=== PATIENT | male | born 1960 | race Two or more races ===

== ENCOUNTER 2018-12-22 20:22 | Inpatient (IN) | payer BC, MEDICAID ==
[~2018-12-22] VITALS: Ht 182.9 cm; Wt 73.2 kg
[2018-12-22] MEDS ORDERED: ALBUTEROL (0.083%) 2.5MG/3ML NEB HHN STA (21:17)
[2018-12-22 22:12] LABS: BASOPHILS % 1.3 % (0.0-2.0); CHLORIDE 102 mEq/L (98-107); EOSINOPHILS % 0.9 % (0.0-5.0); HEMATOCRIT. 46.3 % (42.0-52.0); HEMOGLOBIN. 14.5 g/dL (14.0-18.0); LYMPHOCYTES % 21.8 % (20.0-50.0); MEAN CORPUSCULAR HEMOGLOBIN 24.2 pg (28.0-32.0); MEAN CORPUSCULAR VOLUME 77.1 fL (80.0-94.0); MEAN PLATELET VOLUME 7.9 fl (7.4-10.4); MONOCYTES % 13.6 % (2.0-8.0); NEUTROPHILS % 62.4 % (40.0-76.0); PLATELET 346 x1000/uL (130-400)
[2018-12-22 22:16] LABS: ETHANOL BLOOD < 10 mg/dL; INR 1.5; PARTIAL THROMBOPLASTIN TIME 30.3 sec (23.4-31.0); PROTHROMBIN TIME 15.4 sec (9.1-11.1)
[2018-12-22] MEDS ORDERED: SODIUM CHLORIDE 0.9% 1,000 ML IV ONE (22:35)
[2018-12-22] MEDS ORDERED: HYDROCODONE/ACETAMINOPHEN 5/325MG TABLET PO ONE (22:45)
[2018-12-22 22:55] LABS: CHLORIDE 102 mEq/L (98-107)
[2018-12-22 23:00] LABS: PLATELET ESTIMATE NORMAL
[2018-12-23 00:38] LABS: CLARITY URINE CLEAR (CLEAR); COLOR URINE YELLOW (YELLOW); KETONES URINE NEGATIVE (NEGATIVE); LEUKOCYTE ESTERASE URINE NEGATIVE (NEGATIVE); NITRITE URINE NEGATIVE (NEGATIVE); OCCULT BLOOD URINE NEGATIVE (NEGATIVE); PROTEIN URINE NEGATIVE (NEGATIVE)
[2018-12-23 00:53] LABS: *BARBITURATES SCREEN URINE NEGATIVE (NEGATIVE); *BENZODIAZEPINES SCREEN URINE NEGATIVE (NEGATIVE); *COCAINE SCREEN URINE NEGATIVE (NEGATIVE)
[2018-12-23 00:54] LABS: *AMPHETAMINES SCREEN URINE PRESUMTIVE POSITIVE (NEGATIVE); METHADONE URINE SCREEN NEGATIVE (NEGATIVE); OPIATES URINE SCREEN NEGATIVE (NEGATIVE); PHENCYCLIDINE URINE SCREEN NEGATIVE (NEGATIVE)
[2018-12-23 00:55] LABS: CANNABINOID URINE SCREEN NEGATIVE (NEGATIVE)
[2018-12-23] MEDS ORDERED: IOHEXOL-350 100 ML BOTTLE ONE (04:19)
[2018-12-23] MEDS ORDERED: ONDANSETRON HCL 4MG/2ML INJ IV PRN (08:15)
[2018-12-23] MEDS ORDERED: IPRATROPIUM/ALBUTEROL 0.5-3(2.5)MG/3ML NEB HHN PRN (08:15)
[2018-12-23] MEDS ORDERED: ACETAMINOPHEN 325MG TABLET PO PRN (08:15)
[2018-12-23 10:00] VITALS: BP 112/77
[2018-12-23] MEDS: LOSARTAN POTASSIUM 25 MG TABLET PO SCH (11:15)
[2018-12-23] MEDS: CARVEDILOL 6.25 MG TABLET PO SCH ×2 (11:15→21:00)
[2018-12-23] MEDS: FUROSEMIDE 100MG/10ML VIAL IVP SCH ×2 (11:16→17:09)
[2018-12-23] MEDS: ENOXAPARIN 40MG/0.4ML SYR SUBCUT SCH (11:17)
[2018-12-23 11:28] VITALS: BP 112/77
[2018-12-23 12:00] VITALS: BP 133/89
[2018-12-23] MEDS: HYDROCODONE/ACETAMINOPHEN 5/325MG TABLET PO PRN (12:35)
[2018-12-23] MEDS ORDERED: PNEUMOCOCCAL 23-VAL P-SAC VAC 0.5 ML IM ONE (15:00)
[2018-12-23 16:00] VITALS: BP 96/60
[2018-12-23 20:00] VITALS: BP 109/71
[2018-12-23] MEDS: MORPHINE SULFATE 4 MG/ML CPJ (NOT FOR IM USE) IV PRN (22:16)
[2018-12-23 23:59] VITALS: BP 108/83
[2018-12-24] MEDS: HYDROCODONE/ACETAMINOPHEN 5/325MG TABLET PO PRN ×2 (02:49→21:24)
[2018-12-24 04:00] VITALS: BP 120/85
[2018-12-24 06:52] LABS: CHLORIDE 101 mEq/L (98-107)
[2018-12-24 07:25] LABS: BASOPHILS % 1.6 % (0.0-2.0); EOSINOPHILS % 2.2 % (0.0-5.0); HEMATOCRIT. 47.8 % (42.0-52.0); HEMOGLOBIN. 14.8 g/dL (14.0-18.0); LYMPHOCYTES % 21.6 % (20.0-50.0); MEAN CORPUSCULAR HEMOGLOBIN 24.3 pg (28.0-32.0); MEAN CORPUSCULAR VOLUME 78.4 fL (80.0-94.0); MEAN PLATELET VOLUME 8.2 fl (7.4-10.4); MONOCYTES % 12.8 % (2.0-8.0); NEUTROPHILS % 61.8 % (40.0-76.0); PLATELET 337 x1000/uL (130-400); RED CELL DISTRIBUTION WIDTH 21.7 % (11.6-14.6)
[2018-12-24 08:00] VITALS: BP 109/90
[2018-12-24] MEDS: LOSARTAN POTASSIUM 25 MG TABLET PO SCH (08:34)
[2018-12-24] MEDS: CARVEDILOL 6.25 MG TABLET PO SCH ×2 (08:34→21:17)
[2018-12-24] MEDS: FUROSEMIDE 100MG/10ML VIAL IVP SCH ×2 (09:10→16:45)
[2018-12-24] MEDS: ENOXAPARIN 40MG/0.4ML SYR SUBCUT SCH (09:11)
[2018-12-24] MEDS: SPIRONOLACTONE 50MG TABLET PO SCH (09:11)
[2018-12-24] MEDS: MORPHINE SULFATE 4 MG/ML CPJ (NOT FOR IM USE) IV PRN (09:11)
[2018-12-24 12:28] VITALS: BP 103/75
[2018-12-24 16:00] VITALS: BP 124/78
[2018-12-24 20:11] VITALS: BP 111/81
[2018-12-25 00:37] VITALS: BP 98/67
[2018-12-25 04:00] VITALS: BP 116/86
[2018-12-25] MEDS: MORPHINE SULFATE 4 MG/ML CPJ (NOT FOR IM USE) IV PRN (07:13)
[2018-12-25 07:57] LABS: BASOPHILS % 0.7 % (0.0-2.0); EOSINOPHILS % 1.5 % (0.0-5.0); HEMATOCRIT. 46.2 % (42.0-52.0); HEMOGLOBIN. 14.5 g/dL (14.0-18.0); MEAN CORPUSCULAR HEMOGLOBIN 24.1 pg (28.0-32.0); MEAN CORPUSCULAR VOLUME 76.7 fL (80.0-94.0); MEAN PLATELET VOLUME 7.9 fl (7.4-10.4); MONOCYTES % 13.7 % (2.0-8.0); NEUTROPHILS % 71.1 % (40.0-76.0); PLATELET 331 x1000/uL (130-400); RED BLOOD CELL COUNT 6.02 mill/uL (4.7-6.1); RED CELL DISTRIBUTION WIDTH 21.5 % (11.6-14.6)
[2018-12-25 08:00] VITALS: BP 112/81
[2018-12-25] MEDS: SPIRONOLACTONE 50MG TABLET PO SCH (09:05)
[2018-12-25] MEDS: FUROSEMIDE 100MG/10ML VIAL IVP SCH ×2 (09:05→17:12)
[2018-12-25] MEDS: CARVEDILOL 6.25 MG TABLET PO SCH (09:05)
[2018-12-25] MEDS: LOSARTAN POTASSIUM 25 MG TABLET PO SCH (09:05)
[2018-12-25] MEDS: ENOXAPARIN 40MG/0.4ML SYR SUBCUT SCH (09:06)
[2018-12-25 11:20] LABS: CHLORIDE 101 mEq/L (98-107)
[2018-12-25 11:37] LABS: CREATINE KINASE 40 IU/L (39-308)
[2018-12-25 11:40] LABS: CREATINE KINASE MB FRACTION 1.7 ng/mL (0.5-3.6)
[2018-12-25 12:00] VITALS: BP 100/69
[2018-12-25] MEDS: HYDROCODONE/ACETAMINOPHEN 5/325MG TABLET PO PRN ×2 (15:32→16:17)
[2018-12-25 16:00] VITALS: BP 109/73
[2018-12-25 17:15] VITALS: BP 115/80
== END 2018-12-25 19:12 | disposition home or self-care (01) | DRG 194 ==
LOC: ER 20:22 → 6WST 12-23 00:57 → EDBEDREQTM 12-23 00:59 → EDBEDREQDT 12-23 00:59 → EDBEDREQ 12-23 00:59 → ENRESERV 12-23 08:24
PROVIDERS: ADMIT Internal Medicine; ATTEND Internal Medicine
DX: I11.0 Hypertensive heart disease with heart failure (principal); E43 Unspecified severe protein-calorie malnutrition; I27.20 Pulmonary hypertension, unspecified; I50.23 Acute on chronic systolic (congestive) heart failure; I69.351 Hemiplegia and hemiparesis following cerebral infarction affecting right dominant side; G40.909 Epilepsy, unspecified, not intractable, without status epilepticus; N40.0 Benign prostatic hyperplasia without lower urinary tract symptoms; F10.10 Alcohol abuse, uncomplicated; F15.10 Other stimulant abuse, uncomplicated; I42.0 Dilated cardiomyopathy; W18.30XA Fall on same level, unspecified, initial encounter; S93.401A Sprain of unspecified ligament of right ankle, initial encounter; Y93.89 Activity, other specified; Y92.89 Other specified places as the place of occurrence of the external cause; Y99.8 Other external cause status; Z72.0 Tobacco use; Z71.41 Alcohol abuse counseling and surveillance of alcoholic; Z71.51 Drug abuse counseling and surveillance of drug abuser; Z68.21 Body mass index [BMI] 21.0-21.9, adult
CPT/HCPCS: 36415; 71045; 71275; 73610; 73630; 73718; 80048; 80305; 82550; 82553; 83735; 83880; 84443; 84484; 85379; 90732; 93005; 93970; 94640; 96360; 96361; 97116; 97162; 99285; G0482; J1650; J1940; J2270; J7030; J7611; Q9967

== ENCOUNTER 2019-04-18 00:38 | Inpatient (IN) | payer MEDICAID ==
[~2019-04-18] VITALS: Ht 182.9 cm; Wt 77.1 kg
[2019-04-18 02:51] LABS: HEMATOCRIT. 45.2 % (42.0-52.0); HEMOGLOBIN. 14.7 g/dL (14.0-18.0); MEAN CORPUSCULAR HEMOGLOBIN 25.9 pg (28.0-32.0); MEAN CORPUSCULAR VOLUME 79.7 fL (80.0-94.0); MEAN PLATELET VOLUME 8.1 fl (7.4-10.4); PLATELET 362 x1000/uL (130-400); RED BLOOD CELL COUNT 5.67 mill/uL (4.7-6.1); RED CELL DISTRIBUTION WIDTH 18.9 % (11.6-14.6)
[2019-04-18 02:55] LABS: CHLORIDE 104 mEq/L (98-107)
[2019-04-18 03:01] LABS: CLARITY URINE CLEAR (CLEAR); COLOR URINE YELLOW (YELLOW); KETONES URINE NEGATIVE (NEGATIVE); LEUKOCYTE ESTERASE URINE NEGATIVE (NEGATIVE); NITRITE URINE NEGATIVE (NEGATIVE); OCCULT BLOOD URINE NEGATIVE (NEGATIVE); PROTEIN URINE NEGATIVE (NEGATIVE); SPECIFIC GRAVITY URINE 1.013 (1.005-1.030)
[2019-04-18] MEDS ORDERED: ASPIRIN 81MG TABLET PO NR (04:15)
[2019-04-18] MEDS ORDERED: FUROSEMIDE 40MG TABLET PO NR (04:30)
[2019-04-18 04:36] LABS: PLATELET ESTIMATE NORMAL
[2019-04-18] MEDS ORDERED: ACETAMINOPHEN 325MG TABLET PO PRN (06:00)
[2019-04-18] MEDS ORDERED: DOCUSATE SODIUM 100MG CAPSULE PO PRN (08:00)
[2019-04-18] MEDS ORDERED: ONDANSETRON HCL 4MG/2ML INJ IV PRN (08:00)
[2019-04-18] MEDS ORDERED: MAGNESIUM/ALUMINUM HYDROXIDE/SIMETHICONE 30ML UDC PO PRN (08:00)
[2019-04-18] MEDS ORDERED: NA PHOS,M-B/NA PHOS,DI-BA ENEMA 118ML PR PRN (08:00)
[2019-04-18] MEDS ORDERED: CLONIDINE 0.1MG TABLET PO PRN (08:00)
[2019-04-18 08:05] LABS: CHLORIDE 107 mEq/L (98-107)
[2019-04-18] MEDS: HYDROCODONE/ACETAMINOPHEN 5/325MG TABLET PO PRN (09:48)
[2019-04-18] MEDS: ENOXAPARIN 40MG/0.4ML SYR SUBCUT SCH (13:50)
[2019-04-18] MEDS: IPRATROPIUM/ALBUTEROL 0.5-3(2.5)MG/3ML NEB INH PRN ×2 (14:59→21:15)
[2019-04-18 17:26] VITALS: BP 110/87
[2019-04-18] MEDS ORDERED: APIX2.5T PO (18:03)
[2019-04-18] MEDS ORDERED: FURO-152 PO (18:03)
[2019-04-18 19:48] VITALS: BP 115/83
[2019-04-18] MEDS: LORAZEPAM 2MG/ML CPJ IV PRN (23:08)
[2019-04-18 23:45] VITALS: BP 129/96
[2019-04-19] VITALS (7 sets, daily range): BP systolic 107–136; BP diastolic 80–95
[2019-04-19] MEDS: IPRATROPIUM/ALBUTEROL 0.5-3(2.5)MG/3ML NEB INH PRN ×4 (00:57→14:26)
[2019-04-19] MEDS: GUAIFENESIN 200MG/10ML SUGAR FREE UDC PO PRN (04:09)
[2019-04-19 07:35] LABS: CHLORIDE 105 mEq/L (98-107)
[2019-04-19 07:39] LABS: HEMATOCRIT. 45.5 % (42.0-52.0); HEMOGLOBIN. 14.8 g/dL (14.0-18.0); MEAN CORPUSCULAR HEMOGLOBIN 25.6 pg (28.0-32.0); MEAN CORPUSCULAR VOLUME 78.8 fL (80.0-94.0); MEAN PLATELET VOLUME 8.2 fl (7.4-10.4); PLATELET 339 x1000/uL (130-400); RED BLOOD CELL COUNT 5.77 mill/uL (4.7-6.1); RED CELL DISTRIBUTION WIDTH 18.8 % (11.6-14.6)
[2019-04-19 07:43] LABS: LDL CHOLESTEROL 75 mg/dL (5-100)
[2019-04-19 07:44] LABS: HDL CHOLESTEROL 26 mg/dL (40-59); T4 FREE 1.13 ng/dL (0.76-1.46)
[2019-04-19] MEDS: ENOXAPARIN 40MG/0.4ML SYR SUBCUT SCH (08:20)
[2019-04-19] MEDS ORDERED: ASPIRIN 81MG EC TABLET PO SCH (09:00)
[2019-04-19] MEDS: LORAZEPAM 2MG/ML CPJ IV PRN (09:07)
[2019-04-19] MEDS ORDERED: OMEP40CA34 PO (10:15)
[2019-04-19] MEDS ORDERED: FURO80TA3 PO (10:15)
[2019-04-19] MEDS ORDERED: CARV6.2548 PO (10:15)
[2019-04-19] MEDS ORDERED: TAMS0.4C31 PO (10:15)
[2019-04-19] MEDS ORDERED: DILT30TA3 PO (10:15)
[2019-04-19] MEDS ORDERED: FINA1TAB18 PO (10:15)
[2019-04-19 10:30] LABS: PLATELET ESTIMATE NORMAL
[2019-04-19] MEDS: FUROSEMIDE 40MG/4ML VIAL IVP SCH (15:28)
[2019-04-19] MEDS: ALPRAZOLAM 0.25 MG TABLET PO PRN ×2 (15:35→23:50)
[2019-04-19] MEDS: IPRATROPIUM/ALBUTEROL 0.5-3(2.5)MG/3ML NEB HHN SCH ×2 (17:23→21:07)
[2019-04-19] MEDS: MULTIVITAMINS,THER W-MINERALS TABLET PO SCH (17:45)
[2019-04-19] MEDS: THIAMINE HCL 100MG TABLET PO SCH (17:45)
[2019-04-19] MEDS: FOLIC ACID 1MG TABLET PO SCH (17:45)
[2019-04-19 18:20] LABS: *AMPHETAMINES SCREEN URINE PRESUMTIVE POSITIVE (NEGATIVE); *BARBITURATES SCREEN URINE NEGATIVE (NEGATIVE); *BENZODIAZEPINES SCREEN URINE NEGATIVE (NEGATIVE); *COCAINE SCREEN URINE NEGATIVE (NEGATIVE); METHADONE URINE SCREEN NEGATIVE (NEGATIVE); OPIATES URINE SCREEN PRESUMTIVE POSITIVE (NEGATIVE)
[2019-04-19 18:21] LABS: CANNABINOID URINE SCREEN PRESUMTIVE POSITIVE (NEGATIVE); PHENCYCLIDINE URINE SCREEN NEGATIVE (NEGATIVE)
[2019-04-19] MEDS: GUAIFENESIN 600MG ER TABLET PO SCH (20:49)
[2019-04-20] VITALS (14 sets, daily range): BP systolic 116–154; BP diastolic 69–117
[2019-04-20 00:47] LABS: CREATINE KINASE MB FRACTION 3.4 ng/mL (0.5-3.6)
[2019-04-20] MEDS: IPRATROPIUM/ALBUTEROL 0.5-3(2.5)MG/3ML NEB HHN SCH ×6 (01:08→20:46)
[2019-04-20] MEDS: LORAZEPAM 2MG/ML CPJ IV PRN ×2 (03:21→15:43)
[2019-04-20] MEDS: GUAIFENESIN 600MG ER TABLET PO SCH ×2 (09:17→20:35)
[2019-04-20] MEDS: FOLIC ACID 1MG TABLET PO SCH (09:17)
[2019-04-20] MEDS: FUROSEMIDE 40MG/4ML VIAL IVP SCH ×2 (09:17→16:24)
[2019-04-20] MEDS: MULTIVITAMINS,THER W-MINERALS TABLET PO SCH (09:17)
[2019-04-20] MEDS: ASPIRIN 81MG TABLET PO SCH (09:18)
[2019-04-20] MEDS: THIAMINE HCL 100MG TABLET PO SCH (09:18)
[2019-04-20] MEDS: ENOXAPARIN 40MG/0.4ML SYR SUBCUT SCH (09:23)
[2019-04-20] MEDS: GUAIFENESIN 200MG/10ML SUGAR FREE UDC PO PRN (15:43)
[2019-04-20 15:54] LABS: BG BASE EXCESS -2.1 mmol/L (-2.0-2.0); BG CARBOXYHEMOGLOBIN 1.8 % (0.5-1.5); BG DEOXYHEMOGLOBIN 7.1 % (0.0-5.0); BG HCO3 ACT 20.1 mmol/L (22.0-26.0); BG METHEMOGLOBIN 0.2 % (0.0-1.5); BG OXYGEN SATURATION 92.8 % (92.0-98.5); BG OXYHEMOGLOBIN 90.9 % (94.0-97.0); BG PCO2 28.4 mmHg (35.0-45.0); BG PH 7.467 (7.350-7.450); BG PO2 64.1 mmHg (75.0-100.0); BG SAMPLE SITE RIGHT RADIAL; BG TOTAL HEMOGLOBIN 15.9 g/dL (12.0-18.0); BG VENT MODE ROOM AIR
[2019-04-20] MEDS ORDERED: DOCUSATE SODIUM 250MG CAPSULE PO NR (16:00)
[2019-04-20] MEDS: BUDESONIDE 0.5MG/2ML NEB HHN SCH ×2 (16:12→20:46)
[2019-04-20] MEDS: LACTOBACILLUS GG CAPSULE PO SCH (16:24)
[2019-04-20] MEDS ORDERED: LACTULOSE 20G/30ML UDC PO PRN (17:00)
[2019-04-20] MEDS: ALPRAZOLAM 0.5 MG TABLET PO PRN (18:12)
[2019-04-20 22:03] LABS: BG CARBOXYHEMOGLOBIN 1.8 % (0.5-1.5); BG FRACTION INSPIRED OXYGEN 36; BG HCO3 ACT 18.9 mmol/L (22.0-26.0); BG METHEMOGLOBIN 0.4 % (0.0-1.5); BG OXYGEN SATURATION 93.9 % (92.0-98.5); BG OXYHEMOGLOBIN 91.8 % (94.0-97.0); BG PCO2 32.4 mmHg (35.0-45.0); BG PH 7.384 (7.350-7.450); BG PO2 75.1 mmHg (75.0-100.0); BG SAMPLE SITE RIGHT BRACHIAL; BG TOTAL HEMOGLOBIN 15.5 g/dL (12.0-18.0); BG VENT MODE NASAL CANNULA
[2019-04-21] VITALS (28 sets, daily range): BP systolic 110–160; BP diastolic 66–104
[2019-04-21] MEDS: IPRATROPIUM/ALBUTEROL 0.5-3(2.5)MG/3ML NEB HHN SCH ×7 (00:22→23:57)
[2019-04-21] MEDS: FUROSEMIDE 40MG/4ML VIAL IVP SCH ×2 (06:23→16:46)
[2019-04-21] MEDS: BUDESONIDE 0.5MG/2ML NEB HHN SCH ×2 (07:48→20:07)
[2019-04-21 08:22] LABS: BG BASE EXCESS 0.8 mmol/L (-2.0-2.0); BG BILEVEL POS AIRWAY PRESSURE 40; BG CARBOXYHEMOGLOBIN 1.5 % (0.5-1.5); BG DEOXYHEMOGLOBIN 1.2 % (0.0-5.0); BG FRACTION INSPIRED OXYGEN 15/5; BG HCO3 ACT 23.9 mmol/L (22.0-26.0); BG METHEMOGLOBIN 0.3 % (0.0-1.5); BG OXYGEN SATURATION 98.8 % (92.0-98.5); BG PCO2 33.8 mmHg (35.0-45.0); BG PH 7.467 (7.350-7.450); BG PO2 132.6 mmHg (75.0-100.0); BG SAMPLE SITE RIGHT RADIAL; BG TOTAL HEMOGLOBIN 14.7 g/dL (12.0-18.0); BG VENT MODE MASK - BIPAP; BG VENT RATE 16 set
[2019-04-21] MEDS: ASPIRIN 81MG TABLET PO SCH (08:51)
[2019-04-21] MEDS: THIAMINE HCL 100MG TABLET PO SCH (08:51)
[2019-04-21] MEDS: MULTIVITAMINS,THER W-MINERALS TABLET PO SCH (08:51)
[2019-04-21] MEDS: DOCUSATE SODIUM 250MG CAPSULE PO SCH (08:51)
[2019-04-21] MEDS: GUAIFENESIN 600MG ER TABLET PO SCH ×2 (08:51→22:14)
[2019-04-21] MEDS: FOLIC ACID 1MG TABLET PO SCH (08:51)
[2019-04-21] MEDS: BISACODYL 5MG TABLET PO PRN (08:52)
[2019-04-21] MEDS: LACTOBACILLUS GG CAPSULE PO SCH (08:52)
[2019-04-21] MEDS: ENOXAPARIN 40MG/0.4ML SYR SUBCUT SCH (08:53)
[2019-04-21 11:22] LABS: INR 1.8; PROTHROMBIN TIME 17.7 sec (9.6-11.0)
[2019-04-21] MEDS: NICOTINE 14MG PATCH TOP SCH (12:33)
[2019-04-21] MEDS: TAMSULOSIN HCL 0.4MG SR CAPSULE PO SCH (12:34)
[2019-04-21] MEDS: LORAZEPAM 2MG/ML CPJ IV PRN (13:19)
[2019-04-21] MEDS: ALPRAZOLAM 0.5 MG TABLET PO PRN (16:46)
[2019-04-21] MEDS: GUAIFENESIN 200MG/10ML SUGAR FREE UDC PO PRN (16:46)
[2019-04-22] VITALS (13 sets, daily range): BP systolic 107–154; BP diastolic 68–99
[2019-04-22] MEDS: ALPRAZOLAM 0.5 MG TABLET PO PRN (02:13)
[2019-04-22] MEDS: GUAIFENESIN 200MG/10ML SUGAR FREE UDC PO PRN (02:14)
[2019-04-22] MEDS: HYDROCODONE/ACETAMINOPHEN 5/325MG TABLET PO PRN (03:49)
[2019-04-22] MEDS: HYDROMORPHONE HCL/PF 2MG/ML CPJ IV PRN ×2 (04:18→21:28)
[2019-04-22] MEDS: DIPHENHYDRAMINE 50MG/ML VIAL IV PRN (04:19)
[2019-04-22] MEDS: IPRATROPIUM/ALBUTEROL 0.5-3(2.5)MG/3ML NEB HHN SCH ×5 (04:20→21:28)
[2019-04-22 06:04] LABS: HEMATOCRIT. 43.1 % (42.0-52.0); MEAN CORPUSCULAR HEMOGLOBIN 25.7 pg (28.0-32.0); MEAN CORPUSCULAR VOLUME 79.3 fL (80.0-94.0); MEAN PLATELET VOLUME 8.4 fl (7.4-10.4); PLATELET 371 x1000/uL (130-400); RED BLOOD CELL COUNT 5.44 mill/uL (4.7-6.1); RED CELL DISTRIBUTION WIDTH 18.8 % (11.6-14.6)
[2019-04-22] MEDS: FUROSEMIDE 40MG/4ML VIAL IVP SCH ×2 (06:04→17:26)
[2019-04-22 06:24] LABS: CHLORIDE 101 mEq/L (98-107)
[2019-04-22 06:39] LABS: BG BILEVEL POS AIRWAY PRESSURE 15/5; BG CARBOXYHEMOGLOBIN 1.7 % (0.5-1.5); BG DEOXYHEMOGLOBIN 4.1 % (0.0-5.0); BG FRACTION INSPIRED OXYGEN 40; BG HCO3 ACT 21.5 mmol/L (22.0-26.0); BG METHEMOGLOBIN 0.3 % (0.0-1.5); BG OXYGEN SATURATION 95.8 % (92.0-98.5); BG OXYHEMOGLOBIN 93.9 % (94.0-97.0); BG PCO2 45.4 mmHg (35.0-45.0); BG PH 7.294 (7.350-7.450); BG PO2 95.4 mmHg (75.0-100.0); BG SAMPLE SITE RIGHT RADIAL; BG TOTAL HEMOGLOBIN 15.3 g/dL (12.0-18.0); BG VENT MODE MASK - BIPAP
[2019-04-22] MEDS: THIAMINE HCL 100MG TABLET PO SCH (09:27)
[2019-04-22] MEDS: LACTOBACILLUS GG CAPSULE PO SCH (09:27)
[2019-04-22] MEDS: DOCUSATE SODIUM 250MG CAPSULE PO SCH (09:27)
[2019-04-22] MEDS: MULTIVITAMINS,THER W-MINERALS TABLET PO SCH (09:28)
[2019-04-22] MEDS: TAMSULOSIN HCL 0.4MG SR CAPSULE PO SCH (09:28)
[2019-04-22] MEDS: GUAIFENESIN 600MG ER TABLET PO SCH ×2 (09:28→21:28)
[2019-04-22] MEDS: NICOTINE 14MG PATCH TOP SCH (09:29)
[2019-04-22] MEDS: FOLIC ACID 1MG TABLET PO SCH (09:30)
[2019-04-22] MEDS: BUDESONIDE 0.5MG/2ML NEB HHN SCH ×2 (09:35→21:32)
[2019-04-22 10:41] LABS: PLATELET ESTIMATE NORMAL
[2019-04-22 15:12] LABS: BG BASE EXCESS -0.9 mmol/L (-2.0-2.0); BG DEOXYHEMOGLOBIN 3.8 % (0.0-5.0); BG FRACTION INSPIRED OXYGEN 36; BG HCO3 ACT 24.3 mmol/L (22.0-26.0); BG METHEMOGLOBIN 0.3 % (0.0-1.5); BG OXYGEN SATURATION 96.1 % (92.0-98.5); BG OXYHEMOGLOBIN 93.9 % (94.0-97.0); BG PCO2 42.4 mmHg (35.0-45.0); BG PH 7.376 (7.350-7.450); BG PO2 86.7 mmHg (75.0-100.0); BG SAMPLE SITE RIGHT RADIAL; BG TOTAL HEMOGLOBIN 14.6 g/dL (12.0-18.0); BG VENT MODE NASAL CANNULA
[2019-04-23] VITALS (12 sets, daily range): BP systolic 105–143; BP diastolic 53–98
[2019-04-23] MEDS: IPRATROPIUM/ALBUTEROL 0.5-3(2.5)MG/3ML NEB HHN SCH ×6 (00:30→19:59)
[2019-04-23] MEDS: FUROSEMIDE 40MG/4ML VIAL IVP SCH (06:27)
[2019-04-23] MEDS: BUDESONIDE 0.5MG/2ML NEB HHN SCH (07:38)
[2019-04-23] MEDS: THIAMINE HCL 100MG TABLET PO SCH (08:57)
[2019-04-23] MEDS: DOCUSATE SODIUM 250MG CAPSULE PO SCH (08:57)
[2019-04-23] MEDS: MULTIVITAMINS,THER W-MINERALS TABLET PO SCH (08:57)
[2019-04-23] MEDS: TAMSULOSIN HCL 0.4MG SR CAPSULE PO SCH (08:57)
[2019-04-23] MEDS: FOLIC ACID 1MG TABLET PO SCH (08:57)
[2019-04-23] MEDS: GUAIFENESIN 600MG ER TABLET PO SCH ×2 (08:57→21:07)
[2019-04-23] MEDS: NICOTINE 14MG PATCH TOP SCH (08:58)
[2019-04-23] MEDS: LACTOBACILLUS GG CAPSULE PO SCH (09:07)
[2019-04-23] MEDS ORDERED: TERBUTALINE SULFATE 1MG/ML VIAL SUBCUT NR (14:45)
[2019-04-23] MEDS ORDERED: BUDESONIDE 0.5MG/2ML NEB HHN SCH (16:00)
[2019-04-23] MEDS: FUROSEMIDE 100MG/10ML VIAL IVP SCH (16:30)
[2019-04-23] MEDS: DIPHENHYDRAMINE 50MG/ML VIAL IV PRN (22:42)
[2019-04-24] VITALS (12 sets, daily range): BP systolic 102–146; BP diastolic 38–92
[2019-04-24] MEDS: IPRATROPIUM/ALBUTEROL 0.5-3(2.5)MG/3ML NEB HHN SCH ×5 (00:40→20:37)
[2019-04-24] MEDS: ALPRAZOLAM 0.5 MG TABLET PO PRN (03:22)
[2019-04-24] MEDS: ACETAMINOPHEN 325MG TABLET PO PRN ×2 (03:27→14:42)
[2019-04-24] MEDS: FUROSEMIDE 100MG/10ML VIAL IVP SCH ×2 (06:24→17:24)
[2019-04-24 07:08] LABS: HEMATOCRIT. 43.3 % (42.0-52.0); HEMOGLOBIN. 13.9 g/dL (14.0-18.0); MEAN CORPUSCULAR HEMOGLOBIN 25.7 pg (28.0-32.0); MEAN CORPUSCULAR VOLUME 79.9 fL (80.0-94.0); MEAN PLATELET VOLUME 8.6 fl (7.4-10.4); PLATELET 331 x1000/uL (130-400); RED BLOOD CELL COUNT 5.41 mill/uL (4.7-6.1); RED CELL DISTRIBUTION WIDTH 18.7 % (11.6-14.6)
[2019-04-24 07:21] LABS: CHLORIDE 101 mEq/L (98-107)
[2019-04-24] MEDS: DOCUSATE SODIUM 250MG CAPSULE PO SCH (08:26)
[2019-04-24] MEDS: MULTIVITAMINS,THER W-MINERALS TABLET PO SCH (08:26)
[2019-04-24] MEDS: LACTOBACILLUS GG CAPSULE PO SCH (08:27)
[2019-04-24] MEDS: GUAIFENESIN 600MG ER TABLET PO SCH ×2 (08:27→21:36)
[2019-04-24] MEDS: FOLIC ACID 1MG TABLET PO SCH (08:27)
[2019-04-24] MEDS: TAMSULOSIN HCL 0.4MG SR CAPSULE PO SCH (08:27)
[2019-04-24] MEDS: NICOTINE 14MG PATCH TOP SCH (08:28)
[2019-04-24] MEDS: THIAMINE HCL 100MG TABLET PO SCH (08:36)
[2019-04-24 10:25] LABS: PLATELET ESTIMATE NORMAL
[2019-04-24] MEDS: CARVEDILOL 6.25 MG TABLET PO SCH ×2 (12:57→21:37)
[2019-04-24] MEDS: DILTIAZEM HCL 30MG TABLET PO SCH ×2 (12:57→21:36)
[2019-04-24] MEDS: TRAMADOL 50MG TABLET PO PRN ×2 (12:59→21:38)
[2019-04-24] MEDS: FINASTERIDE 5MG TABLET PO SCH (14:36)
[2019-04-24] MEDS: BISACODYL 5MG TABLET PO PRN (14:36)
[2019-04-24] MEDS: LORAZEPAM 2MG/ML CPJ IV PRN ×2 (17:30→21:39)
[2019-04-24 23:42] LABS: INR 1.6
[2019-04-25] VITALS (12 sets, daily range): BP systolic 94–135; BP diastolic 34–98
[2019-04-25] MEDS: IPRATROPIUM/ALBUTEROL 0.5-3(2.5)MG/3ML NEB HHN SCH ×6 (00:30→20:11)
[2019-04-25] MEDS: LORAZEPAM 2MG/ML CPJ IV PRN ×2 (02:49→22:56)
[2019-04-25] MEDS: DILTIAZEM HCL 30MG TABLET PO SCH ×3 (05:18→21:10)
[2019-04-25] MEDS: FUROSEMIDE 100MG/10ML VIAL IVP SCH ×2 (06:27→17:48)
[2019-04-25 07:35] LABS: HEMATOCRIT. 45.4 % (42.0-52.0); HEMOGLOBIN. 14.6 g/dL (14.0-18.0); LYMPHOCYTES % 17.9 % (20.0-50.0); MEAN CORPUSCULAR HEMOGLOBIN 25.8 pg (28.0-32.0); MEAN CORPUSCULAR VOLUME 80.4 fL (80.0-94.0); MEAN PLATELET VOLUME 8.4 fl (7.4-10.4); MONOCYTES % 12.6 % (2.0-8.0); NEUTROPHILS % 67.5 % (40.0-76.0); PLATELET 373 x1000/uL (130-400); RED BLOOD CELL COUNT 5.65 mill/uL (4.7-6.1); RED CELL DISTRIBUTION WIDTH 18.9 % (11.6-14.6)
[2019-04-25 08:00] LABS: INR 1.8; PROTHROMBIN TIME 18.5 sec (9.6-11.0)
[2019-04-25 08:30] LABS: CHLORIDE 100 mEq/L (98-107)
[2019-04-25] MEDS: THIAMINE HCL 100MG TABLET PO SCH (09:46)
[2019-04-25] MEDS: TAMSULOSIN HCL 0.4MG SR CAPSULE PO SCH (09:47)
[2019-04-25] MEDS: LACTOBACILLUS GG CAPSULE PO SCH (09:47)
[2019-04-25] MEDS: GUAIFENESIN 600MG ER TABLET PO SCH ×2 (09:48→21:10)
[2019-04-25] MEDS: MULTIVITAMINS,THER W-MINERALS TABLET PO SCH (09:49)
[2019-04-25] MEDS: DOCUSATE SODIUM 250MG CAPSULE PO SCH (09:49)
[2019-04-25] MEDS: FOLIC ACID 1MG TABLET PO SCH (09:49)
[2019-04-25] MEDS: FINASTERIDE 5MG TABLET PO SCH (09:49)
[2019-04-25] MEDS: CARVEDILOL 6.25 MG TABLET PO SCH ×2 (09:50→21:00)
[2019-04-25] MEDS: NICOTINE 14MG PATCH TOP SCH (09:52)
[2019-04-25] MEDS: DIPHENHYDRAMINE 50MG/ML VIAL IV PRN (21:11)
[2019-04-25] MEDS: IPRATROPIUM/ALBUTEROL 0.5-3(2.5)MG/3ML NEB INH PRN (22:49)
[2019-04-26] VITALS (10 sets, daily range): BP systolic 103–153; BP diastolic 68–98
[2019-04-26] MEDS: IPRATROPIUM/ALBUTEROL 0.5-3(2.5)MG/3ML NEB HHN SCH ×6 (00:01→19:59)
[2019-04-26] MEDS: GUAIFENESIN 200MG/10ML SUGAR FREE UDC PO PRN ×2 (00:07→13:23)
[2019-04-26] MEDS: TRAMADOL 50MG TABLET PO PRN (00:22)
[2019-04-26] MEDS: DILTIAZEM HCL 30MG TABLET PO SCH ×3 (05:58→22:26)
[2019-04-26] MEDS: FUROSEMIDE 100MG/10ML VIAL IVP SCH ×2 (06:26→17:00)
[2019-04-26] MEDS: NICOTINE 14MG PATCH TOP SCH (09:00)
[2019-04-26] MEDS: LACTOBACILLUS GG CAPSULE PO SCH (09:01)
[2019-04-26] MEDS: MULTIVITAMINS,THER W-MINERALS TABLET PO SCH (09:01)
[2019-04-26] MEDS: DOCUSATE SODIUM 250MG CAPSULE PO SCH (09:01)
[2019-04-26] MEDS: GUAIFENESIN 600MG ER TABLET PO SCH ×2 (09:01→20:18)
[2019-04-26] MEDS: THIAMINE HCL 100MG TABLET PO SCH (09:01)
[2019-04-26] MEDS: FOLIC ACID 1MG TABLET PO SCH (09:03)
[2019-04-26] MEDS: TAMSULOSIN HCL 0.4MG SR CAPSULE PO SCH (09:03)
[2019-04-26] MEDS: CARVEDILOL 6.25 MG TABLET PO SCH ×2 (09:03→20:18)
[2019-04-26] MEDS: FINASTERIDE 5MG TABLET PO SCH (09:03)
[2019-04-26] MEDS: DIPHENHYDRAMINE 50MG/ML VIAL IV PRN (22:31)
[2019-04-26] MEDS: LORAZEPAM 2MG/ML CPJ IV PRN (23:37)
[2019-04-27] VITALS (12 sets, daily range): BP systolic 114–154; BP diastolic 52–107
[2019-04-27] MEDS: IPRATROPIUM/ALBUTEROL 0.5-3(2.5)MG/3ML NEB HHN SCH ×6 (00:24→20:11)
[2019-04-27] MEDS: DILTIAZEM HCL 30MG TABLET PO SCH ×3 (05:30→21:19)
[2019-04-27 06:26] LABS: INR 1.8; PROTHROMBIN TIME 17.8 sec (9.6-11.0)
[2019-04-27] MEDS: NICOTINE 14MG PATCH TOP SCH (09:00)
[2019-04-27] MEDS: DOCUSATE SODIUM 250MG CAPSULE PO SCH (09:39)
[2019-04-27] MEDS: LACTOBACILLUS GG CAPSULE PO SCH (09:39)
[2019-04-27] MEDS: THIAMINE HCL 100MG TABLET PO SCH (09:39)
[2019-04-27] MEDS: FINASTERIDE 5MG TABLET PO SCH (09:39)
[2019-04-27] MEDS: GUAIFENESIN 600MG ER TABLET PO SCH ×2 (09:39→21:18)
[2019-04-27] MEDS: FOLIC ACID 1MG TABLET PO SCH (09:39)
[2019-04-27] MEDS: MULTIVITAMINS,THER W-MINERALS TABLET PO SCH (09:39)
[2019-04-27] MEDS: CARVEDILOL 6.25 MG TABLET PO SCH ×2 (09:40→21:00)
[2019-04-27] MEDS: TAMSULOSIN HCL 0.4MG SR CAPSULE PO SCH (09:40)
[2019-04-27] MEDS: FUROSEMIDE 100MG/10ML VIAL IVP SCH ×2 (09:40→18:04)
[2019-04-27] MEDS: LORAZEPAM 2MG/ML CPJ IV PRN ×2 (09:41→14:38)
[2019-04-27] MEDS: GUAIFENESIN 200MG/10ML SUGAR FREE UDC PO PRN (12:29)
[2019-04-27 13:09] LABS: BG BASE EXCESS 1.3 mmol/L (-2.0-2.0); BG CARBOXYHEMOGLOBIN 1.7 % (0.5-1.5); BG METHEMOGLOBIN 0.3 % (0.0-1.5); BG OXYGEN SATURATION 91.8 % (92.0-98.5); BG PCO2 37.1 mmHg (35.0-45.0); BG PH 7.447 (7.350-7.450); BG SAMPLE SITE RIGHT BRACHIAL; BG TOTAL HEMOGLOBIN 15.7 g/dL (12.0-18.0); BG VENT MODE ROOM AIR
[2019-04-27] MEDS: TRAMADOL 50MG TABLET PO PRN (14:15)
[2019-04-28] VITALS (14 sets, daily range): BP systolic 103–151; BP diastolic 52–109
[2019-04-28] MEDS: IPRATROPIUM/ALBUTEROL 0.5-3(2.5)MG/3ML NEB HHN SCH ×6 (00:37→21:20)
[2019-04-28] MEDS: LORAZEPAM 2MG/ML CPJ IV PRN (00:50)
[2019-04-28 06:38] LABS: CHLORIDE 99 mEq/L (98-107)
[2019-04-28] MEDS: DILTIAZEM HCL 30MG TABLET PO SCH ×3 (06:38→21:41)
[2019-04-28 06:41] LABS: HEMATOCRIT. 45.2 % (42.0-52.0); HEMOGLOBIN. 14.7 g/dL (14.0-18.0); MEAN CORPUSCULAR HEMOGLOBIN 25.9 pg (28.0-32.0); MEAN CORPUSCULAR VOLUME 79.9 fL (80.0-94.0); MEAN PLATELET VOLUME 8.4 fl (7.4-10.4); PLATELET 347 x1000/uL (130-400); RED BLOOD CELL COUNT 5.66 mill/uL (4.7-6.1); RED CELL DISTRIBUTION WIDTH 18.7 % (11.6-14.6)
[2019-04-28 06:44] LABS: INR 1.7; PROTHROMBIN TIME 17.2 sec (9.6-11.0)
[2019-04-28] MEDS: FUROSEMIDE 100MG/10ML VIAL IVP SCH ×2 (07:40→16:51)
[2019-04-28] MEDS ORDERED: LIDOCAINE HCL 1% 20ML VIAL (Pyxis) INJ ONE (08:50)
[2019-04-28] MEDS ORDERED: SODIUM BICARBONATE 4% (2.4MEQ) 5ML VIAL IV ONE (08:51)
[2019-04-28] MEDS: DOCUSATE SODIUM 250MG CAPSULE PO SCH (11:39)
[2019-04-28] MEDS: MULTIVITAMINS,THER W-MINERALS TABLET PO SCH (11:39)
[2019-04-28] MEDS: LACTOBACILLUS GG CAPSULE PO SCH (11:39)
[2019-04-28] MEDS: THIAMINE HCL 100MG TABLET PO SCH (11:39)
[2019-04-28] MEDS: CARVEDILOL 6.25 MG TABLET PO SCH ×2 (11:40→21:41)
[2019-04-28] MEDS: TAMSULOSIN HCL 0.4MG SR CAPSULE PO SCH (11:40)
[2019-04-28] MEDS: FOLIC ACID 1MG TABLET PO SCH (11:41)
[2019-04-28] MEDS: FINASTERIDE 5MG TABLET PO SCH (11:41)
[2019-04-28] MEDS: NICOTINE 14MG PATCH TOP SCH (11:42)
[2019-04-28] MEDS: GUAIFENESIN 600MG ER TABLET PO SCH ×2 (11:49→21:39)
[2019-04-28 14:24] LABS: PLATELET ESTIMATE NORMAL
[2019-04-28 16:28] LABS: BG CARBOXYHEMOGLOBIN 2.1 % (0.5-1.5); BG DEOXYHEMOGLOBIN 9.5 % (0.0-5.0); BG FRACTION INSPIRED OXYGEN 21; BG HCO3 ACT 28.7 mmol/L (22.0-26.0); BG METHEMOGLOBIN 0.4 % (0.0-1.5); BG OXYGEN SATURATION 90.3 % (92.0-98.5); BG PCO2 39.1 mmHg (35.0-45.0); BG PH 7.483 (7.350-7.450); BG PO2 58.9 mmHg (75.0-100.0); BG SAMPLE SITE RIGHT RADIAL; BG TOTAL HEMOGLOBIN 15.4 g/dL (12.0-18.0); BG VENT MODE ROOM AIR
[2019-04-28] MEDS: DIPHENHYDRAMINE 50MG/ML VIAL IV PRN (21:40)
[2019-04-28] MEDS: ACETAMINOPHEN 325MG TABLET PO PRN (21:47)
[2019-04-28] MEDS: GUAIFENESIN 200MG/10ML SUGAR FREE UDC PO PRN (23:01)
[2019-04-28] MEDS: TRAMADOL 50MG TABLET PO PRN (23:02)
[2019-04-29] VITALS: BP 104/64
[2019-04-29] MEDS: IPRATROPIUM/ALBUTEROL 0.5-3(2.5)MG/3ML NEB HHN SCH ×5 (01:02→20:55)
[2019-04-29 04:00] VITALS: BP 102/75
[2019-04-29] MEDS: DILTIAZEM HCL 30MG TABLET PO SCH ×3 (05:33→21:32)
[2019-04-29] MEDS: TRAMADOL 50MG TABLET PO PRN (06:15)
[2019-04-29 06:55] LABS: BASOPHILS % 1.2 % (0.0-2.0); EOSINOPHILS % 0.6 % (0.0-5.0); HEMATOCRIT. 44.8 % (42.0-52.0); HEMOGLOBIN. 14.4 g/dL (14.0-18.0); LYMPHOCYTES % 13.8 % (20.0-50.0); MEAN CORPUSCULAR HEMOGLOBIN 25.6 pg (28.0-32.0); MEAN CORPUSCULAR VOLUME 79.5 fL (80.0-94.0); MEAN PLATELET VOLUME 8.5 fl (7.4-10.4); MONOCYTES % 14.9 % (2.0-8.0); NEUTROPHILS % 69.5 % (40.0-76.0); PLATELET 372 x1000/uL (130-400); RED BLOOD CELL COUNT 5.63 mill/uL (4.7-6.1); RED CELL DISTRIBUTION WIDTH 19.3 % (11.6-14.6)
[2019-04-29 07:00] LABS: CHLORIDE 100 mEq/L (98-107)
[2019-04-29 08:00] VITALS: BP 94/19
[2019-04-29] MEDS: FINASTERIDE 5MG TABLET PO SCH (08:14)
[2019-04-29] MEDS: DOCUSATE SODIUM 250MG CAPSULE PO SCH (08:14)
[2019-04-29] MEDS: CARVEDILOL 6.25 MG TABLET PO SCH ×2 (08:15→21:32)
[2019-04-29] MEDS: LACTOBACILLUS GG CAPSULE PO SCH (08:15)
[2019-04-29] MEDS: TAMSULOSIN HCL 0.4MG SR CAPSULE PO SCH (08:16)
[2019-04-29] MEDS: GUAIFENESIN 600MG ER TABLET PO SCH ×2 (08:16→21:32)
[2019-04-29] MEDS: FOLIC ACID 1MG TABLET PO SCH (08:16)
[2019-04-29] MEDS: MULTIVITAMINS,THER W-MINERALS TABLET PO SCH (08:16)
[2019-04-29] MEDS: FUROSEMIDE 100MG/10ML VIAL IVP SCH ×2 (08:17→16:51)
[2019-04-29] MEDS: NICOTINE 14MG PATCH TOP SCH (08:30)
[2019-04-29] MEDS: THIAMINE HCL 100MG TABLET PO SCH (08:35)
[2019-04-29 12:00] VITALS: BP 97/67
[2019-04-29 16:00] VITALS: BP 98/72
[2019-04-29 20:00] VITALS: BP 118/80
[2019-04-29] MEDS: DIPHENHYDRAMINE 50MG/ML VIAL IV PRN (22:19)
[2019-04-29] MEDS: LORAZEPAM 2MG/ML CPJ IV PRN (23:58)
[2019-04-30] VITALS (7 sets, daily range): BP systolic 96–134; BP diastolic 69–85
[2019-04-30] MEDS: IPRATROPIUM/ALBUTEROL 0.5-3(2.5)MG/3ML NEB HHN SCH ×6 (00:24→22:04)
[2019-04-30] MEDS: DILTIAZEM HCL 30MG TABLET PO SCH ×3 (06:51→21:22)
[2019-04-30] MEDS: FUROSEMIDE 100MG/10ML VIAL IVP SCH ×2 (06:51→17:15)
[2019-04-30 07:24] LABS: BASOPHILS % 0.6 % (0.0-2.0); EOSINOPHILS % 0.1 % (0.0-5.0); HEMATOCRIT. 45.8 % (42.0-52.0); HEMOGLOBIN. 14.9 g/dL (14.0-18.0); LYMPHOCYTES % 10.8 % (20.0-50.0); MEAN CORPUSCULAR HEMOGLOBIN 25.9 pg (28.0-32.0); MEAN CORPUSCULAR VOLUME 79.9 fL (80.0-94.0); MEAN PLATELET VOLUME 8.6 fl (7.4-10.4); MONOCYTES % 13.9 % (2.0-8.0); NEUTROPHILS % 74.6 % (40.0-76.0); PLATELET 351 x1000/uL (130-400); RED BLOOD CELL COUNT 5.73 mill/uL (4.7-6.1)
[2019-04-30 08:40] LABS: CHLORIDE 95 mEq/L (98-107)
[2019-04-30] MEDS: DOCUSATE SODIUM 250MG CAPSULE PO SCH (09:00)
[2019-04-30] MEDS: FOLIC ACID 1MG TABLET PO SCH (09:42)
[2019-04-30] MEDS: LACTOBACILLUS GG CAPSULE PO SCH (09:42)
[2019-04-30] MEDS: GUAIFENESIN 600MG ER TABLET PO SCH ×2 (09:42→21:22)
[2019-04-30] MEDS: TAMSULOSIN HCL 0.4MG SR CAPSULE PO SCH (09:42)
[2019-04-30] MEDS: CARVEDILOL 6.25 MG TABLET PO SCH ×2 (09:43→21:22)
[2019-04-30] MEDS: FINASTERIDE 5MG TABLET PO SCH (09:43)
[2019-04-30] MEDS: THIAMINE HCL 100MG TABLET PO SCH (09:43)
[2019-04-30] MEDS: MULTIVITAMINS,THER W-MINERALS TABLET PO SCH (09:43)
[2019-04-30] MEDS: NICOTINE 14MG PATCH TOP SCH (09:43)
[2019-04-30] MEDS: DIPHENHYDRAMINE 50MG/ML VIAL IV PRN (21:22)
[2019-04-30] MEDS: ACETAMINOPHEN 325MG TABLET PO PRN (22:55)
[2019-05-01] VITALS: BP 101/67
[2019-05-01] MEDS: IPRATROPIUM/ALBUTEROL 0.5-3(2.5)MG/3ML NEB HHN SCH ×4 (01:46→12:22)
[2019-05-01 04:00] VITALS: BP 112/71
[2019-05-01] MEDS: DILTIAZEM HCL 30MG TABLET PO SCH ×2 (06:19→13:57)
[2019-05-01] MEDS: FUROSEMIDE 100MG/10ML VIAL IVP SCH ×2 (06:20→17:42)
[2019-05-01] MEDS: ACETAMINOPHEN 325MG TABLET PO PRN (06:42)
[2019-05-01 08:00] VITALS: BP 107/73
[2019-05-01] MEDS: TAMSULOSIN HCL 0.4MG SR CAPSULE PO SCH (09:00)
[2019-05-01] MEDS: CARVEDILOL 6.25 MG TABLET PO SCH (09:00)
[2019-05-01] MEDS: NICOTINE 14MG PATCH TOP SCH (09:00)
[2019-05-01] MEDS: MULTIVITAMINS,THER W-MINERALS TABLET PO SCH (09:30)
[2019-05-01] MEDS: DOCUSATE SODIUM 250MG CAPSULE PO SCH (09:30)
[2019-05-01] MEDS: LACTOBACILLUS GG CAPSULE PO SCH (09:30)
[2019-05-01] MEDS: FOLIC ACID 1MG TABLET PO SCH (09:31)
[2019-05-01] MEDS: THIAMINE HCL 100MG TABLET PO SCH (09:31)
[2019-05-01] MEDS: GUAIFENESIN 600MG ER TABLET PO SCH (09:31)
[2019-05-01] MEDS: FINASTERIDE 5MG TABLET PO SCH (09:32)
[2019-05-01 12:00] VITALS: BP 107/90
[2019-05-01 16:00] VITALS: BP 101/76
[2019-05-01] MEDS: GUAIFENESIN 200MG/10ML SUGAR FREE UDC PO PRN (17:47)
[2019-05-01 18:08] VITALS: BP 101/76
== END 2019-05-01 19:28 | disposition home health service (06) | DRG 190 ==
LOC: ER 00:59 → 5WST 05:54 → ENRESERV 15:39 → MICUSO 04-20 21:29 → 5EST 04-21 14:00 → 5WST 04-29 11:41
PROVIDERS: ADMIT Internal Medicine; ATTEND Internal Medicine
PROC: 5A09357 Assistance with Respiratory Ventilation, Less than 24 Consecutive Hours, Continuous Positive Airway Pressure (ICD-10-PCS; 2019-04-20)
PROC: 5A09357 Assistance with Respiratory Ventilation, Less than 24 Consecutive Hours, Continuous Positive Airway Pressure (ICD-10-PCS; 2019-04-21)
PROC: 5A09357 Assistance with Respiratory Ventilation, Less than 24 Consecutive Hours, Continuous Positive Airway Pressure (ICD-10-PCS; 2019-04-22)
PROC: 5A09357 Assistance with Respiratory Ventilation, Less than 24 Consecutive Hours, Continuous Positive Airway Pressure (ICD-10-PCS; 2019-04-23)
PROC: 5A09357 Assistance with Respiratory Ventilation, Less than 24 Consecutive Hours, Continuous Positive Airway Pressure (ICD-10-PCS; 2019-04-25)
PROC: 5A09357 Assistance with Respiratory Ventilation, Less than 24 Consecutive Hours, Continuous Positive Airway Pressure (ICD-10-PCS; 2019-04-26)
PROC: 5A09357 Assistance with Respiratory Ventilation, Less than 24 Consecutive Hours, Continuous Positive Airway Pressure (ICD-10-PCS; 2019-04-27)
PROC: 0W993ZZ Drainage of Right Pleural Cavity, Percutaneous Approach (ICD-10-PCS; principal; 2019-04-28)
PROC: 30233K1 Transfusion of Nonautologous Frozen Plasma into Peripheral Vein, Percutaneous Approach (ICD-10-PCS; 2019-04-28)
DX: I21.4 Non-ST elevation (NSTEMI) myocardial infarction (principal); J96.00 Acute respiratory failure, unspecified whether with hypoxia or hypercapnia; J69.0 Pneumonitis due to inhalation of food and vomit; I50.23 Acute on chronic systolic (congestive) heart failure; I42.9 Cardiomyopathy, unspecified; I11.0 Hypertensive heart disease with heart failure; I69.351 Hemiplegia and hemiparesis following cerebral infarction affecting right dominant side; G40.909 Epilepsy, unspecified, not intractable, without status epilepticus; N40.0 Benign prostatic hyperplasia without lower urinary tract symptoms; I27.20 Pulmonary hypertension, unspecified; E78.5 Hyperlipidemia, unspecified; F17.210 Nicotine dependence, cigarettes, uncomplicated; F20.9 Schizophrenia, unspecified; F41.9 Anxiety disorder, unspecified; F15.10 Other stimulant abuse, uncomplicated; I37.1 Nonrheumatic pulmonary valve insufficiency; F10.10 Alcohol abuse, uncomplicated; J68.0 Bronchitis and pneumonitis due to chemicals, gases, fumes and vapors; K59.00 Constipation, unspecified; Z79.01 Long term (current) use of anticoagulants; Z79.899 Other long term (current) drug therapy; Z91.14 Patient's other noncompliance with medication regimen; Z71.6 Tobacco abuse counseling
CPT/HCPCS: 32555; 36415; 36600; 71045; 71250; 80048; 80061; 80305; 82040; 82375; 82550; 82553; 82805; 82962; 83036; 83615; 83880; 84439; 84443; 84484; 85379; 86850; 86900; 86927; 88108; 88312; 93005; 93306; 93970; 94640; 94660; 96374; 96375; 97110; 97116; 97162; 99285; J1170; J1200; J1650; J1940; J2060; J3490; J7620; J7626; P9017

== ENCOUNTER 2019-09-15 13:57 | Emergency (ER) | payer MEDICAID, OTHER ==
[~2019-09-15] VITALS: Ht 182.9 cm; Wt 80.0 kg
[~2019-09-15 13:57] MED LIST: APIX2.5T PO; CARV6.2548 PO; DILT30TA3 PO; FINA1TAB18 PO; FURO80TA3 PO; OMEP40CA34 PO; TAMS0.4C31 PO
[2019-09-15 15:11] VITALS: BP 110/84
== END 2019-09-15 15:16 | disposition home or self-care (01) ==
LOC: ER 13:57
DX: K02.9 Dental caries, unspecified (principal); K08.89 Other specified disorders of teeth and supporting structures; J44.9 Chronic obstructive pulmonary disease, unspecified; I50.9 Heart failure, unspecified; Z98.890 Other specified postprocedural states
CPT/HCPCS: 99281

== ENCOUNTER 2019-09-22 12:32 | Inpatient (IN) | payer OTHER ==
[~2019-09-22] VITALS: Ht 182.9 cm; Wt 77.1 kg
[2019-09-22] MEDS ORDERED: NITROGLYCERIN OINT 1GM/INCH UDPKT TD ONE (13:00)
[2019-09-22 15:10] LABS: HEMATOCRIT. 44.9 % (42.0-52.0); HEMOGLOBIN. 14.3 g/dL (14.0-18.0); MEAN CORPUSCULAR HEMOGLOBIN 26.5 pg (28.0-32.0); MEAN PLATELET VOLUME 7.9 fl (7.4-10.4); PLATELET 414 x1000/uL (130-400); RED BLOOD CELL COUNT 5.41 mill/uL (4.7-6.1)
[2019-09-22 15:11] LABS: INR 1.5; PROTHROMBIN TIME 15.1 sec (9.6-11.0)
[2019-09-22 15:12] LABS: CHLORIDE 105 mEq/L (98-107)
[2019-09-22 15:45] LABS: PLATELET ESTIMATE INCREASED
[2019-09-22] MEDS ORDERED: ALBUTEROL (0.083%) 2.5MG/3ML NEB HHN STA (17:55)
[2019-09-22] MEDS ORDERED: FUROSEMIDE 40MG/4ML VIAL IVP ONE (18:00)
[2019-09-22 22:05] VITALS: BP 112/85
[2019-09-22] MEDS ORDERED: IPRATROPIUM/ALBUTEROL 0.5-3(2.5)MG/3ML NEB NEB PRN ×2 (22:30→22:45)
[2019-09-22] MEDS ORDERED: ACETAMINOPHEN 325MG TABLET PO PRN ×2 (22:30→22:45)
[2019-09-22] MEDS ORDERED: MORPHINE SULFATE 2 MG/ML CPJ (NOT FOR IM USE) IV PRN (22:30)
[2019-09-22] MEDS ORDERED: CLONIDINE 0.1MG TABLET PO PRN ×2 (22:30→22:45)
[2019-09-22] MEDS ORDERED: ONDANSETRON HCL 4MG/2ML INJ IV PRN ×2 (22:30→22:45)
[2019-09-22] MEDS ORDERED: ENOXAPARIN 40MG/0.4ML SYR SUBCUT SCH (22:45)
[2019-09-23] VITALS: BP 120/92
[2019-09-23] MEDS: TAMSULOSIN HCL 0.4MG SR CAPSULE PO SCH ×2 (00:40→08:41)
[2019-09-23] MEDS: CARVEDILOL 6.25 MG TABLET PO SCH ×2 (00:40→08:41)
[2019-09-23] MEDS: DILTIAZEM HCL 30MG TABLET PO SCH ×3 (00:40→14:29)
[2019-09-23] MEDS: FINASTERIDE 5MG TABLET PO SCH ×2 (00:41→08:41)
[2019-09-23] MEDS: MORPHINE SULFATE 2 MG/ML CPJ (NOT FOR IM USE) IV PRN ×2 (01:58→22:33)
[2019-09-23 04:00] VITALS: BP 115/83
[2019-09-23 06:50] LABS: HEMATOCRIT. 44.4 % (42.0-52.0); HEMOGLOBIN. 14.2 g/dL (14.0-18.0); MEAN CORPUSCULAR HEMOGLOBIN 26.5 pg (28.0-32.0); MEAN CORPUSCULAR VOLUME 82.9 fL (80.0-94.0); MEAN PLATELET VOLUME 7.7 fl (7.4-10.4); PLATELET 438 x1000/uL (130-400); RED BLOOD CELL COUNT 5.36 mill/uL (4.7-6.1); RED CELL DISTRIBUTION WIDTH 19.8 % (11.6-14.6)
[2019-09-23 07:03] LABS: CHLORIDE 102 mEq/L (98-107)
[2019-09-23 07:29] LABS: CREATINE KINASE 108 IU/L (39-308); CREATINE KINASE MB FRACTION 2.7 ng/mL (0.5-3.6)
[2019-09-23 08:00] VITALS: BP 116/82
[2019-09-23] MEDS ORDERED: ENOXAPARIN 40MG/0.4ML SYR SUBCUT SCH ×2 (09:00→11:15)
[2019-09-23] MEDS ORDERED: FUROSEMIDE 40MG/4ML VIAL IVP SCH ×2 (09:00)
[2019-09-23] MEDS ORDERED: METHYLPREDNISOLONE SOD SUCC 125 MG/2 ML VIAL IV SCH (11:00)
[2019-09-23 12:00] VITALS: BP 98/66
[2019-09-23] MEDS ORDERED: INFLUENZA VIRUS VACCINE(AFLURIA) 0.5ML SYR IM ONE (12:00)
[2019-09-23 12:06] LABS: *AMPHETAMINES SCREEN URINE PRESUMTIVE POSITIVE (NEGATIVE); *BARBITURATES SCREEN URINE NEGATIVE (NEGATIVE); *BENZODIAZEPINES SCREEN URINE NEGATIVE (NEGATIVE); *COCAINE SCREEN URINE NEGATIVE (NEGATIVE)
[2019-09-23 12:07] LABS: CANNABINOID URINE SCREEN PRESUMTIVE POSITIVE (NEGATIVE); METHADONE URINE SCREEN NEGATIVE (NEGATIVE); OPIATES URINE SCREEN PRESUMTIVE POSITIVE (NEGATIVE); PHENCYCLIDINE URINE SCREEN NEGATIVE (NEGATIVE)
[2019-09-23 12:11] LABS: PLATELET ESTIMATE INCREASED
[2019-09-23] MEDS: IPRATROPIUM/ALBUTEROL 0.5-3(2.5)MG/3ML NEB HHN SCH ×3 (13:02→21:22)
[2019-09-23] MEDS ORDERED: ZOLPIDEM TARTRATE 5MG TABLET PO PRN (14:45)
[2019-09-23 16:11] VITALS: BP 112/81
[2019-09-23 16:30] LABS: CREATINE KINASE MB FRACTION 2.7 ng/mL (0.5-3.6)
[2019-09-23] MEDS: FUROSEMIDE 40MG/4ML VIAL IVP SCH (17:03)
[2019-09-23 20:00] VITALS: BP 114/79
[2019-09-23] MEDS: ENOXAPARIN 80MG/0.8ML SYR SUBCUT SCH ×2 (20:42→20:48)
[2019-09-23] MEDS: METHYLPREDNISOLONE SOD SUCC 40 MG/ML VIAL IV SCH (20:42)
[2019-09-23] MEDS: CARVEDILOL 3.125 MG TABLET PO SCH (20:42)
[2019-09-24 00:07] VITALS: BP 121/81
[2019-09-24] MEDS: IPRATROPIUM/ALBUTEROL 0.5-3(2.5)MG/3ML NEB HHN SCH ×4 (00:57→12:08)
[2019-09-24 04:00] VITALS: BP 130/85
[2019-09-24] MEDS: METHYLPREDNISOLONE SOD SUCC 40 MG/ML VIAL IV SCH ×2 (05:51→13:07)
[2019-09-24 07:41] LABS: MEAN CORPUSCULAR HEMOGLOBIN 26.7 pg (28.0-32.0); MEAN CORPUSCULAR VOLUME 82.1 fL (80.0-94.0); MEAN PLATELET VOLUME 7.9 fl (7.4-10.4); PLATELET 479 x1000/uL (130-400); RED BLOOD CELL COUNT 5.24 mill/uL (4.7-6.1); RED CELL DISTRIBUTION WIDTH 19.1 % (11.6-14.6)
[2019-09-24 08:00] VITALS: BP 131/85
[2019-09-24 08:16] LABS: CHLORIDE 104 mEq/L (98-107)
[2019-09-24] MEDS: FUROSEMIDE 40MG/4ML VIAL IVP SCH (09:45)
[2019-09-24] MEDS: ENOXAPARIN 80MG/0.8ML SYR SUBCUT SCH (09:46)
[2019-09-24] MEDS: CARVEDILOL 3.125 MG TABLET PO SCH (09:49)
[2019-09-24] MEDS: FINASTERIDE 5MG TABLET PO SCH (09:49)
[2019-09-24] MEDS: TAMSULOSIN HCL 0.4MG SR CAPSULE PO SCH (09:49)
[2019-09-24 10:23] LABS: PLATELET ESTIMATE INCREASED
[2019-09-24 12:00] VITALS: BP 126/85
[2019-09-24] MEDS ORDERED: MAGNESIUM OXIDE 400MG TABLET PO SCH (13:30)
[2019-09-24] MEDS ORDERED: LISINOPRIL 5MG TABLET PO SCH (14:00)
[2019-09-25] MEDS ORDERED: SPIRONOLACTONE 25MG TABLET PO SCH (09:00)
== END 2019-09-24 16:59 | disposition left against medical advice (07) | DRG 194 ==
LOC: ER 12:32 → 7WST 15:41 → EDBEDREQ 15:56 → EDBEDREQTM 16:33 → ENRESERV 21:34
PROVIDERS: ADMIT Internal Medicine; ATTEND Internal Medicine
DX: I11.0 Hypertensive heart disease with heart failure (principal); I27.20 Pulmonary hypertension, unspecified; E87.5 Hyperkalemia; I08.1 Rheumatic disorders of both mitral and tricuspid valves; R18.8 Other ascites; I42.8 Other cardiomyopathies; G40.909 Epilepsy, unspecified, not intractable, without status epilepticus; I48.91 Unspecified atrial fibrillation; Z53.29 Procedure and treatment not carried out because of patient's decision for other reasons; J44.1 Chronic obstructive pulmonary disease with (acute) exacerbation; F41.9 Anxiety disorder, unspecified; F51.04 Psychophysiologic insomnia; F19.10 Other psychoactive substance abuse, uncomplicated; I25.10 Atherosclerotic heart disease of native coronary artery without angina pectoris; I50.23 Acute on chronic systolic (congestive) heart failure; N40.0 Benign prostatic hyperplasia without lower urinary tract symptoms; Z79.01 Long term (current) use of anticoagulants; Z86.73 Personal history of transient ischemic attack (TIA), and cerebral infarction without residual deficits; Z79.899 Other long term (current) drug therapy
CPT/HCPCS: 36415; 71045; 76705; 80048; 80305; 82550; 82553; 83735; 83880; 84484; 86850; 86900; 93005; 93306; 93970; 94640; 96374; 99285; J1650; J1940; J2270; J2920; J2930; J7611; J7620